=== PATIENT | female | born 1950 ===

== ENCOUNTER 2020-12-27 09:20 | Day surgery (SDC) | payer OTHER | END 2020-12-27 13:25 | disposition home or self-care (01) | LOC: AMB-ENDOS 09:20 | PROVIDERS: ATTEND Surgery | DX: D12.2 Benign neoplasm of ascending colon (principal); Z20.822 Contact with and (suspected) exposure to COVID-19 ==

== ENCOUNTER 2021-03-06 12:13 | Inpatient (IN) | payer OTHER ==
[~2021-03-06] VITALS: Ht 162.6 cm; Wt 72.6 kg
[~2021-03-06 12:13] MED LIST: ADULT LOW DOSE81 M1 PO; CARDURA1 MG PO; CARVEDILOL25 MG; GLIPIZIDE ER10 MG PO; IRBESARTAN-HCT1 EAC1 PO; OMEGA-31000 MG PO
[2021-03-10] MEDS ORDERED: OMEGA-3 ACID ETH1 GM (07:55)
[2021-03-10] MEDS ORDERED: ATORVASTATIN CA20 MG (07:56)
[2021-03-12] MEDS ORDERED: PRILOSEC OTC20 MG PO (12:32)
[2021-03-12] MEDS ORDERED: PERCOCET 5-3251 EACH PO (12:32)
== END 2021-03-12 13:35 | disposition home or self-care (01) | DRG 331 ==
LOC: SURH 12:13 → O/R 03-09 09:19 → SURH 03-09 22:49 → SURG 03-10 03:17
PROVIDERS: ADMIT Surgery; ATTEND Surgery
PROC: 07BB4ZZ Excision of Mesenteric Lymphatic, Percutaneous Endoscopic Approach (ICD-10-PCS; 2021-03-09)
PROC: 0DTF4ZZ Resection of Right Large Intestine, Percutaneous Endoscopic Approach (ICD-10-PCS; principal; 2021-03-09 12:00)
DX: D12.1 Benign neoplasm of appendix (principal); R59.0 Localized enlarged lymph nodes; I12.9 Hypertensive chronic kidney disease with stage 1 through stage 4 chronic kidney disease, or unspecified chronic kidney disease; E11.22 Type 2 diabetes mellitus with diabetic chronic kidney disease; N18.2 Chronic kidney disease, stage 2 (mild); D50.0 Iron deficiency anemia secondary to blood loss (chronic)